=== PATIENT | female | born 1965 | race Caucasian/White ===

== ENCOUNTER → 2024-12-09 | Outpatient (CLI) | payer MEDICAID, SELFPAY ==
[2024-12-09 12:14] LABS: Hematocrit 38.3 % (37-47); Hemoglobin 12.9 g/dL (12.0-15.0); Immature Granulocytes Count 0.040 X10^3/uL (0.0-0.0); Mean Corp Hgb Conc 33.7 g/dL (32-36); Mean Corpuscular Volume 80.8 fL (81-99); Mean Platelet Vol. 9.6 fl (6.2-12.0); NRBC Flagged by Analyzer 0 % (0-5); Platelet Count 217 K/mm3 (150-450); RBC Distribution Width CV 12.8 % (11.6-14.6); RBC Distribution Width SD 37.5 fl (35.1-43.9); Red Blood Count 4.74 M/mm3 (4.2-5.4); White Blood Count 7.1 K/mm3 (4.4-11.0)
[2024-12-09 13:23] LABS: AST(SGOT) 19 U/L (<=31); Alanine Aminotransfer ALT/SGPT 18 U/L (<=34); Albumin, Serum 4.2 g/dL (3.5-5.0); Alkaline Phosphatase 76 U/L (35-104); Anion Gap 10 (5-15); BUN 10 mg/dL (4-19); BUN/Creat Ratio 16.6 RATIO (10-20); Calcium,Total 9.0 mg/dL (7.6-11.0); Carbon Dioxide 22.7 mmol/L (21.0-32.0); Chloride 104 mmol/L (98-108); Globulin 2.6 g/dL (2.2-4.2); Glucose 201 mg/dL (70-99); Potassium 4.8 mmol/L (3.3-5.1)
== END | disposition home or self-care (01) ==
LOC: LAB 11:33
PROVIDERS: PCP Nurse Practitioner Family; Referring Provider Student in an Organized Health Care Education/Training Program; Visit Provider Student in an Organized Health Care Education/Training Program
DX: K59.04 Chronic idiopathic constipation (principal)
CPT/HCPCS: 36415; 80053; 85025

== ENCOUNTER → 2024-12-14 | Outpatient (CLI) | payer MEDICAID, SELFPAY ==
[2024-12-18 13:08] LABS: Calprotectin, Stool 8 ug/g (0-120)
== END | disposition home or self-care (01) ==
LOC: LAB 13:33
PROVIDERS: PCP Nurse Practitioner Family; Referring Provider Student in an Organized Health Care Education/Training Program; Visit Provider Student in an Organized Health Care Education/Training Program
DX: K58.9 Irritable bowel syndrome, unspecified (principal); K59.04 Chronic idiopathic constipation
CPT/HCPCS: 83630; 83993; 87177; 87209; 87329; 87493; 87506

== ENCOUNTER 2025-01-11 12:57 | Day surgery (SDC) | payer MEDICAID, SELFPAY ==
--- NOTE | 2025-01-06 17:07 | PAT.ANESEVAL ---
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 When Was Last Pacemaker Check QUESTION #4 FULL TEXT: You/Your Family Experience fever (hyperthermia) with Anesthesia Last Oral Intake Last Oral intake: Last Oral Intake NPO since Meds taken in AM with sips of water? Meds patient instructed to take am of surgery PONV PONV - golf club head inspector and adjuster: PONV - golf club head inspector and adjuster Female Yes 01/06/25 13:32 HX of Motion Sickness No 01/06/25 13:32 HX of N/V After Surgery No 01/06/25 13:32 Non-Smoker Yes 01/06/25 13:32 Duration of Surgery greater No 01/06/25 13:32 than 60 minutes Number of Risk Factors 2 01/06/25 13:32 PONV Score Moderate Risk 01/06/25 13:32 Respiratory Assessment Respiratory Assessment - golf club head inspector and adjuster: Respiratory Tract Infection Hx - golf club head inspector and adjuster Hx Respiratory Tract Infection No 01/06/25 13:32 STOP Sleep Apnea STOP Sleep Apnea - golf club head inspector and adjuster: STOP Sleep Apnea - golf club head inspector and adjuster Hx Hypertension No 01/06/25 13:32 Hx Sleep Apnea No 01/06/25 13:32 CPAP BIPAP Do you snore loudly (louder No 01/06/25 13:32 than talking or can be heard Do you often feel tired/ No 01/06/25 13:32 fatigued/ sleepy during daytime? Has anyone observed you stop No 01/06/25 13:32 breathing during sleep? STOP Results Negative 01/06/25 13:32 QUESTION #5 FULL TEXT : Do you snore loudly (louder than talking or can be heard through closed doors)? 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 Specify any problems Hx of Preganancy in last 3 No 01/06/25 13:32 Months Nurse Filling Out Transfusion [email or web address] 01/06/25 13:32 & Questions: Date: 01/06/25 01/06/25 13:32 Time: 13:36 01/06/25 13:32 Patient unable to answer at this time (ie. confused, unrespo /Reproduction History /Reproductive History - golf club head inspector and adjuster: /Reproductive Hx- golf club head inspector and adjuster Hx Now Gestational Age (in weeks): EDC: Hx Hx Para Hx Section SAB PFSH Medical History (Updated 01/06/25 @ 13:[address]) IDDM (insulin dependent diabetes mellitus) Wears glasses Wears dentures Ambulates with cane Back pain TIA (transient ischemic attack) Colonoscopy planned History of Crohn's disease History of IBS Gastric reflux Former smoker History of echocardiogram History of stress test Home Medications ?Medication ?Instructions ?Recorded ?Last Taken ?Type atorvastatin 40 mg tablet 40 mg PO QDAY 07/22/24 Unknown History insulin glargine 100 unit/mL (3 80 unit subcut QHS 07/22/24 Unknown History mL) subcutaneous pen (Lantus Solostar U-100 Insulin) insulin lispro 100 unit/mL 1 sliding scale dose subcut 07/22/24 Unknown History subcutaneous solution (Humalog USEASDIRECTD U-100 Insulin) mecobalamin (vitamin B12) 1,000 1,000 mcg PO QDAY 07/22/24 Unknown History mcg chewable tablet peg 3350-electrolytes 236 240 ml PO Q10M #4,000 mL 07/22/24 Unknown Rx gram-22.74 gram-6.74 gram-5.86 gram solution (Golytely) linaclotide 290 mcg capsule 290 mcg PO QAM #30 caps 09/15/24 Unknown Rx (Linzess) dicyclomine 20 mg tablet 20 mg PO BID PRN abdominal pain 12/09/24 Unknown History ibuprofen 200 mg capsule 200 mg PO Q6H PRN pain 12/09/24 Unknown History methocarbamol 500 mg tablet 500 mg PO QDAY PRN pain 12/09/24 Unknown History tizanidine 2 mg capsule 2 mg PO QHS PRN muscle spasticity 12/09/24 Unknown History Allergy/AdvReac Type Severity Reaction Status Date / Time ketorolac (From Toradol) Allergy Intermediate Other Verified 01/06/25 13:29 morphine Allergy Intermediate Other Verified 01/06/25 13:29 Penicillins (PCN) Allergy Intermediate Other Verified 01/06/25 13:29 adhesive tape AdvReac BLISTERS Verified 01/06/25 13:29 Surgical History H/O hemorrhoidectomy Hx of appendectomy H/O bilateral salpingo-oophorectomy Hx of cholecystectomy Social History Smoking Status: Former smoker quit date: 04/21/08 Audit: Pertinent Findings Pertinent Findings EKG Perinent findings: June 21, 2024. Normal sinus rhythm. Right bundle branch block. No change from August 2023. Echo (EF%) pertinent findings: June 22, 2024. EF of 59%. No aortic stenosis. No patent foramen ovale. Recommendation Anesthesia Recommendation Anesthesia recommendation: OPTIMIZED for anesthesia
[2025-01-11] VITALS (8 sets, daily range): BP systolic 96–137; BP diastolic 58–72; PULSE 65–71; RESP 16; TEMP 36.1–36.2; O2SAT 96–98; BMI 38.1
--- NOTE | 2025-01-11 13:46 | PCM.PRE.AN2 ---
ASA Classification* ASA Classification ASA Classification: 3 Assessment & Plan Anesthesia* Anesthesia Assessment Anesthesia Assessment: Discussed sedation and/or anesthesia options, risks, benefits, and alternatives with patient/parents/legal guardian/POA. Questions invited. The patient/parents/legal guardian/POA seems to understand and agrees to proceed with anesthesia plan. Reviewed the physical assessment, medical history, allergy history and patient home medications list prior to surgery/procedure/anesthetic and documented any changes. Performed airway and anesthesia risk assessments. Anesthesia Type Anesthesia Type: MAC History Source History Obtained from:: Patient and Chart Anesthesia Focused Assessment* Temperature: 97 F Pulse Rate: 71 Blood Pressure: 137/69 Respiratory Rate: 16 Pulse Ox: 98 Oxygen Delivery Method: Room Air Airway Assessment Mouth opens: >3 cm Mallampati Score: II Teeth Condition: Dentures, Full, Lower and Upper Neck Range of motion (ROM): Limited ROM Comment: Limited extension Labs Anesthesia Preop lab: CBC WBC, (4.4-11.0) 7.1 K/mm3 12/09/24, 11:45 RBC, (4.2-5.4) 4.74 M/mm3 12/09/24, 11:45 Hgb, (12.0-15.0) 12.9 g/dL 12/09/24, 11:45 Hct, (37-47) 38.3 % 12/09/24, 11:45 Plt Count, (150-450) 217 K/mm3 12/09/24, 11:45 CHEMISTRY Potassium, (3.3-5.1) 4.8 mmol/L 12/09/24, 11:45 Sodium, (133-145) 136 mmol/L 12/09/24, 11:45 BUN, (4-19) 10 mg/dL 12/09/24, 11:45 Creatinine, (0.70-1.20) 0.61 mg/dL L 12/09/24, 11:45 Glucose, (70-99) 201 mg/dL H 12/09/24, 11:45 POC Glucose, (74-106) 139 mg/dL H Today, 13:18 COAG Pre-Assessment Diagnosis/Proposed Procedure Planned Operative Procedure(s): COLONOSCOPY Anesthesia History 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 When Was Last Pacemaker Check QUESTION #4 FULL TEXT: You/Your Family Experience fever (hyperthermia) with Anesthesia Last Oral Intake Last Oral intake: Last Oral Intake NPO since 22:00 01/11/25 13:18 Meds taken in AM with sips of Yes 01/11/25 13:18 water? Meds patient instructed to take am of surgery PONV PONV - machine sneller: PONV - machine sneller Female Yes 01/06/25 13:32 HX of Motion Sickness No 01/06/25 13:32 HX of N/V After Surgery No 01/06/25 13:32 Non-Smoker Yes 01/06/25 13:32 Duration of Surgery greater No 01/06/25 13:32 than 60 minutes Number of Risk Factors 2 01/06/25 13:32 PONV Score Moderate Risk 01/06/25 13:32 Height & Weight Height & Weight: Anesthesia: Height & Weight Height 5 ft 5 in 01/11/25 13:18 Weight: 104 kg 01/11/25 13:18 Body Mass Index (BMI) 38.1 01/11/25 13:18 Respiratory Assessment Respiratory Assessment - machine sneller: Respiratory Tract Infection Hx - machine sneller Hx Respiratory Tract Infection No 01/06/25 13:32 STOP Sleep Apnea STOP Sleep Apnea - machine sneller: STOP Sleep Apnea - machine sneller Hx Hypertension No 01/06/25 13:32 Hx Sleep Apnea No 01/06/25 13:32 CPAP BIPAP Do you snore loudly (louder No 01/06/25 13:32 than talking or can be heard Do you often feel tired/ No 01/06/25 13:32 fatigued/ sleepy during daytime? Has anyone observed you stop No 01/06/25 13:32 breathing during sleep? STOP Results Negative 01/06/25 13:32 QUESTION #5 FULL TEXT : Do you snore loudly (louder than talking or can be heard through closed doors)? 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 Specify any problems Hx of Preganancy in last 3 No 01/06/25 13:32 Months Nurse Filling Out Transfusion [email or web address] 01/06/25 13:32 & Questions: Date: 01/06/25 01/06/25 13:32 Time: 13:36 01/06/25 13:32 Patient unable to answer at this time (ie. confused, unrespo /Reproduction History /Reproductive History - machine sneller: /Reproductive Hx- machine sneller Hx Now Gestational Age (in weeks): EDC: Hx Hx Para Hx Section SAB Active Medications Active Medications: Current Medications Generic Name Dose Route Start Last Admin Trade Name Freq PRN Reason Stop Dose Admin Lactated Ringer's 1,000 mls @ 15 mls/hr 01/11/25 13:00 IV .Q48H ADAMA PFSH Medical History IDDM (insulin dependent diabetes mellitus) Wears glasses Wears dentures Ambulates with cane Back pain TIA (transient ischemic attack) Colonoscopy planned History of Crohn's disease History of IBS Gastric reflux Former smoker History of echocardiogram History of stress test Home Medications ?Medication ?Instructions ?Recorded ?Last Taken ?Type atorvastatin 40 mg tablet 40 mg PO QDAY 07/22/24 01/10/25 History insulin glargine 100 unit/mL (3 80 unit subcut QHS 07/22/24 01/09/25 History mL) subcutaneous pen (Lantus Solostar U-100 Insulin) insulin lispro 100 unit/mL 1 sliding scale dose subcut 07/22/24 01/10/25 History subcutaneous solution (Humalog USEASDIRECTD U-100 Insulin) mecobalamin (vitamin B12) 1,000 1,000 mcg PO QDAY 07/22/24 01/09/25 History mcg chewable tablet peg 3350-electrolytes 236 240 ml PO Q10M #4,000 mL 07/22/24 01/10/25 Rx gram-22.74 gram-6.74 gram-5.86 gram solution (Golytely) linaclotide 290 mcg capsule 290 mcg PO QAM #30 caps 09/15/24 01/09/25 Rx (Linzess) dicyclomine 20 mg tablet 20 mg PO BID PRN abdominal pain 12/09/24 01/04/25 History ibuprofen 200 mg capsule 200 mg PO Q6H PRN pain 12/09/24 01/07/25 History methocarbamol 500 mg tablet 500 mg PO QDAY PRN pain 12/09/24 01/09/25 History tizanidine 2 mg capsule 2 mg PO QHS PRN muscle spasticity 12/09/24 01/08/25 History losartan 25 mg tablet 25 mg PO DAILY 01/11/25 01/11/25 History Allergy/AdvReac Type Severity Reaction Status Date / Time ketorolac (From Toradol) Allergy Intermediate Other Verified 01/11/25 13:14 morphine Allergy Intermediate Other Verified 01/11/25 13:14 Penicillins (PCN) Allergy Intermediate Other Verified 01/11/25 13:14 adhesive tape AdvReac BLISTERS Verified 01/11/25 13:14 Surgical History H/O hemorrhoidectomy Hx of appendectomy H/O bilateral salpingo-oophorectomy Hx of cholecystectomy Social History Smoking Status: Former smoker quit date: 04/21/08 Review of Systems (Anesthesia) ROS Narrative System reviewed and no additional complaints, except as documented.
--- NOTE | 2025-01-11 13:54 | PCM.HP.STD ---
HPI - General General Date of Admission: 01/11/25 Date of Service: 01/11/25 HPI Narrative ESTEFANY GATES, is a 59 F who presents with the Chief Complaint: Constipation . I established in July 2024 for issues with chronic constipation. Last colonoscopy was about 3 years ago. Pt has been on Linzess 290 mcg for years and has a bm daily with this medication. Samples of ibsrela provided to pt. Recommend screening colonoscopy. OV 8.. patient having worsening constipation. She trialed Ibsrela which did not work so she went back to Linzess. She has daily diarrhea while on Linzess but if she does not take it she will not have bowel movements. Her abdomen feels like it is burning and she wonders if she has a gastrointestinal infection. She endorses lack of appetite, chills and abdominal discomfort. She was scheduled for colonoscopy following her last appointment. ENTERIC PATHOGEN PANEL STOOL Today K58.9 - Irritable bowel syndrome, unspecified, K59.04 - Chronic idiopathic constipation Giardia Lamblia, Stool EIA Today K59.04 - Chronic idiopathic constipation Stool Lactoferrin/WBC Today K58.9 - Irritable bowel syndrome, unspecified, K59.04 - Chronic idiopathic constipation Ova and Parasites 8623 Today K58.9 - Irritable bowel syndrome, unspecified, K59.04 - Chronic idiopathic constipation CDIFF (PCR) Today K59.04 - Chronic idiopathic constipation Calprotectin, Stool Today K59.04 - Chronic idiopathic constipation CBC W/Diff, Automated Today K59.04 - Chronic idiopathic constipation Comprehensive Metabolic Profil Today K59.04 - Chronic idiopathic constipation [facility] Medical History IDDM (insulin dependent diabetes mellitus) Wears glasses Wears dentures Ambulates with cane Back pain TIA (transient ischemic attack) Colonoscopy planned History of Crohn's disease History of IBS Gastric reflux Former smoker History of echocardiogram History of stress test Home Medications ?Medication ?Instructions ?Recorded ?Last Taken ?Type atorvastatin 40 mg tablet 40 mg PO QDAY 07/22/24 01/10/25 History insulin glargine 100 unit/mL (3 80 unit subcut QHS 07/22/24 01/09/25 History mL) subcutaneous pen (Lantus Solostar U-100 Insulin) insulin lispro 100 unit/mL 1 sliding scale dose subcut 07/22/24 01/10/25 History subcutaneous solution (Humalog USEASDIRECTD U-100 Insulin) mecobalamin (vitamin B12) 1,000 1,000 mcg PO QDAY 07/22/24 01/09/25 History mcg chewable tablet peg 3350-electrolytes 236 240 ml PO Q10M #4,000 mL 07/22/24 01/10/25 Rx gram-22.74 gram-6.74 gram-5.86 gram solution (Golytely) linaclotide 290 mcg capsule 290 mcg PO QAM #30 caps 09/15/24 01/09/25 Rx (Linzess) dicyclomine 20 mg tablet 20 mg PO BID PRN abdominal pain 12/09/24 01/04/25 History ibuprofen 200 mg capsule 200 mg PO Q6H PRN pain 12/09/24 01/07/25 History methocarbamol 500 mg tablet 500 mg PO QDAY PRN pain 12/09/24 01/09/25 History tizanidine 2 mg capsule 2 mg PO QHS PRN muscle spasticity 12/09/24 01/08/25 History losartan 25 mg tablet 25 mg PO DAILY 01/11/25 01/11/25 History Allergy/AdvReac Type Severity Reaction Status Date / Time ketorolac (From Toradol) Allergy Intermediate Other Verified 01/11/25 13:14 morphine Allergy Intermediate Other Verified 01/11/25 13:14 Penicillins (PCN) Allergy Intermediate Other Verified 01/11/25 13:14 adhesive tape AdvReac BLISTERS Verified 01/11/25 13:14 Surgical History H/O hemorrhoidectomy Hx of appendectomy H/O bilateral salpingo-oophorectomy Hx of cholecystectomy Social History Smoking Status: Former smoker quit date: 04/21/08 ROS Constitutional Constitutional: Denies fatigue, fever(s), poor appetite, weight gain or weight loss Gastrointestinal Gastrointestinal: Denies belching, bloating, change in bowel habits, change in stool character, chewing difficulty, coffee ground emesis, constipation, cramping, diarrhea, dyspepsia, dysphagia, early satiety, excessive flatus, fecal incontinence, heartburn, hematemesis, hematochezia, hemorrhoids, loose stools, melena, nausea, odynophagia, rectal bleeding, tenesmus, vomiting or weight changes Vital Signs Vital Signs Vital Signs: 01/11/25 13:18 01/11/25 13:18 01/11/25 13:49 Temperature 97 F L 97 F L Temperature Source Temporal Pulse Rate 71 71 Respiratory Rate 16 16 Respiratory Pattern Normal Blood Pressure 137/69 H 137/69 H Blood Pressure Mean 91 Blood Pressure Source Monitor Blood Pressure Position Sitting Blood Pressure Location Right Arm Pulse Ox 98 98 Oxygen Delivery Method Room Air Room Air Weight Weight: 229 lb 4.492 oz Body Mass Index (BMI) 38.1 Physical Exam Const alert, oriented x3, no apparent distress and healthy appearing General Appearance: cooperative GI normal to inspection, nondistended, normoactive bowel sounds, soft to palpation, non-tender and non-distended Percussion: normal to percussion Rectal Exam: deferred Results Lab / Micro Data Labs: Laboratory Results - last 24 hr 01/11/25 13:18: POC Glucose 139 H Assessment & Plan Assessment/Plan (1) Chronic idiopathic constipation: PLAN: Assessment and Plan Assessment and Plan (1) Chronic idiopathic constipation: Status: Chronic Plan: Is a 59-year-old female patient here today for continued issues with constipation, loose stool and abdominal pain. Patient established with our office in July 2024 with chronic constipation. At that time she was scheduled for colonoscopy however she was unable to get a ride so she had to cancel. Today she presents with worsening constipation she did trial samples of symptoms Ibsrela but this did not produce a bowel movement. She went back to taking her Linzess 290 mcg daily and has loose stools with taking this but without she would have no bowel movements. Patient has a history of C. difficile and feels she may have a GI infection. I have ordered stool testing to rule this out as well as a CBC and CMP. Patient has already been rescheduled for colonoscopy and will follow-up after this. - Colonoscopy - CBC CMP - Stool testing - Follow-up after Orders: Orders ENTERIC PATHOGEN PANEL STOOL Today K58.9 - Irritable bowel syndrome, unspecified, K59.04 - Chronic idiopathic constipation Giardia Lamblia, Stool EIA Today K59.04 - Chronic idiopathic constipation Stool Lactoferrin/WBC Today K58.9 - Irritable bowel syndrome, unspecified, K59.04 - Chronic idiopathic constipation Ova and Parasites 8623 Today K58.9 - Irritable bowel syndrome, unspecified, K59.04 - Chronic idiopathic constipation CDIFF (PCR) Today K59.04 - Chronic idiopathic constipation Calprotectin, Stool Today K59.04 - Chronic idiopathic constipation CBC W/Diff, Automated Today K59.04 - Chronic idiopathic constipation Comprehensive Metabolic Profil Today K59.04 - Chronic idiopathic constipation
--- NOTE | 2025-01-11 14:39 | OP.PROVAT_ITS ---
01/11/2025 Brandon Ortega Re : Colonoscopy procedure for Cassi Lubin This procedure was performed on Saturday, January 11, 2025. My impressions and recommendations are as follows: Impressions : - Preparation of the colon was fair. - Diverticulosis in the recto-sigmoid colon, in the sigmoid colon and in the descending colon. - Stool in the recto-sigmoid colon, in the sigmoid colon, at the hepatic flexure, in the ascending colon and in the cecum. - No specimens collected. Recommendations : - Discharge patient to home. - Resume previous diet. - Continue present medications. - Repeat colonoscopy in 6 months because the bowel preparation was suboptimal. My findings are described in the full procedure note, which is enclosed. If I can be of further assistance, please feel free to contact me at . Sincerely, Leo Carson, 01/11/2025 2:38:20 PM This report has been signed electronically.
--- NOTE | 2025-01-11 14:39 | OP.COLON_ITS ---
Patient Name: Cassi Giron Procedure Date: 01/11/2025 2:00 PM Date of : 1965 Age: 59 Procedure: Colonoscopy Indications: Screening for colorectal malignant neoplasm Providers: Leo Carson DO Referring MD: Brandon Ortega Medicines: Monitored Anesthesia Care Patient Profile: This is a 59 year old female. Refer to note in patient chart for documentation of history and physical. Last Colonoscopy: none. The patient's first colonoscopy is today. Complications: No immediate complications. Procedure: Pre-Anesthesia Assessment: - Prior to the procedure, a History and Physical was performed, and patient medications and allergies were reviewed. The patient is competent. The risks and benefits of the procedure and the sedation options and risks were discussed with the patient. All questions were answered and informed consent was obtained. Patient identification and proposed procedure were verified by the physician in the pre-procedure area. Mental Status Examination: alert and oriented. Airway Examination: normal oropharyngeal airway and neck mobility. Respiratory Examination: clear to auscultation. CV Examination: normal. Prophylactic Antibiotics: The patient does not require prophylactic antibiotics. Prior Anticoagulants: The patient has taken no anticoagulant or antiplatelet agents except for NSAID medication. ASA Grade Assessment: II - A patient with mild systemic disease. After reviewing the risks and benefits, the patient was deemed in satisfactory condition to undergo the procedure. The anesthesia plan was to use monitored anesthesia care (MAC). Immediately prior to administration of medications, the patient was re-assessed for adequacy to receive sedatives. The heart rate, respiratory rate, oxygen saturations, blood pressure, adequacy of pulmonary ventilation, and response to care were monitored throughout the procedure. The physical status of the patient was re-assessed after the procedure. After I obtained informed consent, the scope was passed under direct vision. Throughout the procedure, the patient's blood pressure, pulse, and oxygen saturations were monitored continuously. The pediatric colonoscope was introduced through the anus and advanced to the cecum, identified by appendiceal orifice and ileocecal valve. The colonoscopy was performed without difficulty. The patient tolerated the procedure well. The quality of the bowel preparation was fair. The ileocecal valve, appendiceal orifice, and rectum were photographed. Scope In: 2:16:41 PM Scope Withdrawal Time 0 hours 6 minutes 55 seconds Scope Out: 2:29:28 PM Total Procedure Duration Time 0 hours 12 minutes 47 seconds Findings: The perianal and digital rectal examinations were normal. Multiple small and large-mouthed diverticula were found in the recto-sigmoid colon, sigmoid colon and descending colon. Stool was found in the recto-sigmoid colon, in the sigmoid colon, at the hepatic flexure, in the ascending colon and in the cecum. Impression: - Preparation of the colon was fair. - Diverticulosis in the recto-sigmoid colon, in the sigmoid colon and in the descending colon. - Stool in the recto-sigmoid colon, in the sigmoid colon, at the hepatic flexure, in the ascending colon and in the cecum. - No specimens collected. Recommendation: - Discharge patient to home. - Resume previous diet. - Continue present medications. - Repeat colonoscopy in 6 months because the bowel preparation was suboptimal. Procedure Code(s): --- Professional --- G0121, Colorectal cancer screening; colonoscopy on individual not meeting criteria for high risk CPT copyright 2021 [employer]. All rights reserved. The codes documented in this report are preliminary and upon change over review may be revised to meet current compliance requirements. Leo Carson DO 01/11/2025 2:38:20 PM This report has been signed electronically. Number of Addenda: 0 Note Initiated On: 01/11/2025 2:00 PM
--- NOTE | 2025-01-11 14:40 | PCM.POST.ANE ---
Anesthesia: Postop Eval I Current Vital Signs Temperature: 97 F Pulse Rate: 67 Blood Pressure: 100/66 Respiratory Rate: 16 Pulse Ox: 98 Oxygen Delivery Method: Room Air Assessment Airway patent: Yes Spontaneous unlabored respirations: Yes Mental status: Asleep nausea: No Vomiting: No Anesthesia Complication: No Fluid Hydration Crystalloid volume administer (ml): 800 Total IV fluid infused: 800 Progress Note Anesthesia document: Postop Eval 1 completed: Yes
--- NOTE | 2025-01-11 15:12 | PCM.POSTANE2 ---
Anesthesia Postop Eval I Sum Postop Eval Completion status Anesthesia document: Postop Eval 1 completed: Yes Anesthesia Postop Eval I Summary Anesthesia Postop Eval I Summary: Anesthesia Postop Eval I: Assessment Summary Airway patent Yes 01/11/25 14:40 [email or web address] Spontaneous unlabored Yes 01/11/25 14:40 [email or web address] respirations Mental status Asleep 01/11/25 14:40 [email or web address] nausea No 01/11/25 14:40 [email or web address] Vomiting No 01/11/25 14:40 [email or web address] Anesthesia Postop Eval I: Fluid Summary Crystalloid volume administer 800 01/11/25 14:40 [email or web address] (ml) Colloids volume administered ( ml) Blood Product volume administered (ml) Total IV fluid infused 800 01/11/25 14:40 [email or web address] Anesthesia Postop Eval I: Summary Notes Anesthesia Complication No 01/11/25 14:40 [email or web address] Anesthesia Complication Comment: Post-operative progress note Anesthesia: Postop Eval II Evaluation Mental status: Awake and Calm Pain Level: 0 nausea: No Vomiting: No Complications Anesthesia Complication: No
== END 2025-01-11 15:22 | disposition home or self-care (01) ==
LOC: EN 12:58 → AC 12:59
PROVIDERS: PCP Nurse Practitioner Family; Referring Provider Nurse Practitioner Family; Visit Provider Internal Medicine Gastroenterology
PROC: 0DJD8ZZ Inspection of Lower Intestinal Tract, Via Natural or Artificial Opening Endoscopic (ICD-10-PCS; CPT 45378; principal; 2025-01-11 13:55)
DX: Z12.11 Encounter for screening for malignant neoplasm of colon (principal); E11.9 Type 2 diabetes mellitus without complications; Z79.4 Long term (current) use of insulin; K57.30 Diverticulosis of large intestine without perforation or abscess without bleeding; Z87.891 Personal history of nicotine dependence; K59.04 Chronic idiopathic constipation; K21.9 Gastro-esophageal reflux disease without esophagitis; Z79.899 Other long term (current) drug therapy
CPT/HCPCS: 45378; 82962; J2405